=== PATIENT | male | born 1960 | race African-American/Black ===

== ENCOUNTER 2021-09-19 10:51 | Emergency (ER) | payer OTHER, SELFPAY ==
--- NOTE | ~2021-09-19 | CT_ITS ---
EXAMINATION: CT ABDOMEN AND PELVIS WITH CONTRAST CLINICAL INFORMATION: Upper abdominal pain. Vomiting. COMPARISON: None TECHNIQUE: Multidetector volumetric images were obtained from the superior aspect of the liver through the pubic symphysis following administration 85 mL of Omnipaque 350 intravenous contrast. Sagittal and coronal reformatted images were obtained on the technologist's workstation. Oral contrast: No This CT examination was performed using dose optimization techniques as appropriate, variously including the following: *Automated exposure control *Adjustment of mA and/or kV according to patient size (this includes techniques or standardized protocols for targeted exams where dose is matched to indication/reason for exam; i.e. extremities or head) *Use of iterative reconstruction technique DLP: 751 mGy-cm FINDINGS: LUNG BASES: Cystic changes noted at the right lung base. Bibasilar atelectasis. The visualized cardiac structures are unremarkable. LIVER, GALLBLADDER, AND BILIARY TREE: The liver is normal in size, shape, and attenuation. No focal hepatic lesion or biliary ductal dilatation is present. The gallbladder is unremarkable with no evidence of radiopaque gallstones, gallbladder wall thickening, or obvious pericholecystic inflammatory changes. PANCREAS: Unremarkable. SPLEEN: Normal size spleen. Small calcified granulomata are present. ADRENAL GLANDS: Unremarkable. KIDNEYS AND URETERS: The kidneys are normal in size, shape, and attenuation. No hydronephrosis, hydroureter, or calculi seen. No perinephric stranding. BLADDER: Unremarkable. GASTROINTESTINAL TRACT: The stomach is unremarkable. The small bowel is normal in caliber. There is wall thickening of the jejunum. Faint adjacent stranding of the fat. The ileum is unremarkable. No colonic wall thickening or acute inflammation. Minimal diverticulosis without diverticulitis. Normal appendix. No free air or free fluid. ABDOMINAL WALL: No significant hernia is appreciated. LYMPH NODES: Normal. VASCULAR: Normal caliber aorta with mild atherosclerotic calcifications. PELVIC VISCERA: The prostate and seminal vesicles are unremarkable. OSSEOUS STRUCTURES: No acute or suspicious osseous abnormality. Degenerative changes noted throughout the spine. Mild degenerative changes of the hips. CT/CT abdomen pelvis w con IMPRESSION: Wall thickening with adjacent inflammation involving the jejunum, suggestive of enteritis. Fleischner guidelines were followed.
[2021-09-19 11:07] VITALS: BP 151/105; BP 151/110; PULSE 70; RESP 19; TEMP 36.5; O2SAT 98; BMI 39.9
--- NOTE | 2021-09-19 11:22 | ECG_ITS ---
Test Reason : ABDOMINAL PAIN Blood Pressure : / mmHG Vent. Rate : 064 BPM Atrial Rate : 064 BPM P-R Int : 196 ms QRS Dur : 094 ms QT Int : 414 ms P-R-T Axes : 042 041 099 degrees QTc Int : 427 ms Normal sinus rhythm Cannot rule out Inferior infarct , age undetermined T wave abnormality, consider lateral ischemia Abnormal ECG No previous ECGs available Referred By: Cassie Senior Electronically Signed By:KATIE VALLEJO MD
--- NOTE | 2021-09-19 11:28 | ED.ABDPAIN ---
HPI - Abdominal Pain General Chief Complaint: Abdominal Pain Stated Complaint: HIGH BP Time Seen by Provider: 09/19/21 11:10 Source: patient and EMS Mode of arrival: EMS Limitations: no limitations History of Present Illness HPI narrative: 61-year-old male with a history of a high blood pressure, high cholesterol, congestive heart failure here with reports of abdominal pain which was diffuse and described as cramping with nausea and vomiting x1 and chills which occurred prior to arrival and is now resolved. Patient tells me that approximately 1 hour ago he felt the pain and it lasted approximately 15-20 minutes. He was seen at his job by the nurse working and was referred into the emergency department. Patient denies any associated chest pain, shortness of breath, headache, diarrhea, fevers. Patient now feels well and is eating a cheese and salami stick. Patient tells me his blood pressure was elevated for EMS 150/100. He did take his morning blood pressure medications Related Data Previous Rx's Medication Instructions Recorded ondansetron 4 mg disintegrating 4 mg PO Q6H PRN #10 tab 09/19/21 tablet Allergies Allergy/AdvReac Type Severity Reaction Status Date / Time lisinopril AdvReac Angioedema Verified 09/19/21 11:11 Review of Systems Review of Systems Yes all other systems are reviewed and are negative Constitutional: Reports no additional constitutional complaints, Denies body ache(s), Reports chills, Denies fever(s), Denies headache(s) and Denies weakness Eyes: Reports no additional eye complaints and Denies change in vision Reports system reviewed and no additional complaints, except as documented, Denies dizziness, Denies headache(s), Denies nasal congestion, Denies nasal discharge and Denies neck pain Cardiovascular: Reports no additional cardiovascular complaints, Denies chest pain, Denies leg edema and Denies dyspnea Respiratory: Reports no additional respiratory complaints, Denies cough and Denies dyspnea Gastrointestinal: Reports no additional gastrointestinal complaints, Reports abdominal pain, Denies diarrhea, Reports nausea and Reports vomiting Genitourinary: Denies urinary incontinence Musculoskeletal: Reports no additional musculoskeletal complaints, Denies back pain, Denies arthralgias, Denies joint swelling, Denies neck pain, Denies numbness and Denies tingling Skin/Breast: Reports system reviewed and no additional complaints, except as docu and Denies rash Reports system reviewed and no additional complaints, except as documented, Denies dizziness, Denies headache(s), Denies numbness, Denies tingling and Denies weakness PMFSH Past Medical History Attestation statement: The following information was validated with the patient. Source: old records reviewed and nursing notes reviewed Medical History (Updated 09/19/21 @ 13:33 by Cassie Senior NP) CHF (congestive heart failure) High cholesterol Hypertension Social History Social History (Updated 09/19/21 @ 11:30 by Cassie Senior NP) Alcohol intake: current Alcohol intake frequency: 3 or more drinks per day Alcohol type: wine and hard liquor Patient Tobacco Use Status: Current everyday Tobacco user Advance Directives: No Advance Directives Information Provided: No Physical Exam ED Vital Signs: Vital Signs - 24 hr 09/19/21 11:07 09/19/21 11:46 Temperature 97.7 F 97.5 F Pulse Rate 70 63 Respiratory Rate 19 17 Blood Pressure 151/105 H 142/86 H Pulse Oximetry 98 92 BMI result Body Mass Index 39.9 Const General: cooperative, healthy appearing, comfortable and no acute distress Orientation/consciousness: patient oriented x3 Limitations: no limitations HENMT Head: Yes normal to inspection Ears: hearing grossly normal bilaterally and TM's normal bilaterally General nose exam: Normal external nose present Face and sinus: Yes normal facial exam Mouth: Normal oral and palatal mucosa present Teeth and gingiva: dentition normal Throat: Yes posterior oropharynx normal, Yes tonsils normal and Yes uvula midline Eyes General: appearance normal, both eyes and all related structures Pupils: Equal, round and reactive pupils present Neck Neck: Yes normal visual inspection, Yes full ROM and Yes no lymphadenopathy Chest Chest palpation & inspection: normal inspection of the chest Resp Effort & Inspection: normal respiratory effort Auscultation: clear to auscultation bilaterally Cardio Rate: regular rate Rhythm: regular rhythm Peripheral pulses: Peripheral pulses 2+ throughout GI Inspection: Yes normal to inspection Palpation (GI): Soft to palpation and nontender Auscultation: normal bowel sounds General: Yes no CVA tenderness Back/Spine/Pelvis Back: no CVA tenderness Thoracic/Lumbar Spine: thoracic and lumbar spine normal to inspection Skin General skin exam: no rashes or lesions noted Neuro General: patient oriented x3 and moves all extremities Cranial nerves: Yes CN's II-XII intact bilaterally, Yes Equal, round and reactive pupils present, Yes Bilaterally intact EOM present, Yes Nystagmus not present and Yes Normal facial strength present Cognition (Neuro): normal cognition Gait exam (Neuro): Normal gait present Motor exam (neuro): 5/5 motor strength present throughout Sensory Exam: Normal double simultaneous stimulation for sensation Extrem General: Yes normal to inspection, Yes no pedal edema and Yes no calf tenderness Course Course Course Narrative: 61-year-old male here with reports of episode of abdominal cramping with vomiting x2 and chills which occurred prior to arrival and is now resolved. On exam the patient has no focal abdominal pain. His abdomen is soft nontender. He is feeling improved and is tolerating p.o.. Will check labs, UA, EKG, COVID screen -1215-EKG shows T-wave inversions in leads V4 through V6. No EKGs here at [facility] to compare to. I was able to copy the patient's EKG from his primary care doctor which was done on 05/22/2020. There is no change when compared to this EKG. 1220-labs unremarkable. COVID screen is negative. UA is pending. Which were examined the patient. He does report some upper abdominal pain now which he describes as a numb/pulsating feeling, on exam the patient does have some mild tenderness to the epigastric area with no rebound or guarding. Will check CT A/P. 1400-CT is consistent with enteritis or gastroenteritis. Patient had some mild nausea after receiving IV contrast which was improved with receiving a dose of Zofran. He was able to tolerate flakita nathaly and crackers with no additional vomiting episodes. Will discharge home with p.r.n. Zofran. Reviewed bland diet for the next several days and plenty of fluids. Reviewed worrisome signs and symptoms of when to return to the emergency department. Comfortable discharge home. MDM - Abdominal Pain MDM Narrative Medical decision making narrative: pancreatitis, gastroenteritis Medical Records Attestation: I reviewed the patient's medical records. Lab Data Attestation: I reviewed the patient's lab results. Result diagrams: 09/19/21 11:32 09/19/21 11:32 Labs: Lab Results 09/19/21 09/19/21 09/19/21 Range/Units 11:32 11:32 11:32 WBC 11.5 H (4.8-10.8) X10*3/uL RBC 5.73 (4.60-5.80) X10*6/uL Hgb 17.5 (14.0-18.0) g/dl Hct 54.7 H (42.0-52.0) % MCV 95.5 (80.0-98.0) fL MCH 30.5 (27.0-33.0) pg MCHC 32.0 (31.0-36.0) g/dl RDW 13.2 (11.0-16.0) % Plt Count 239 (160-400) X10*3/uL MPV 9.8 (9.4-12.4) fL Immature Gran % (Auto) 0.3 (0.0-0.4) % Neut % (Auto) 57.7 (45-73) % Lymph % (Auto) 27.7 (20-40) % [place] % (Auto) 10.4 (2-11) % Eos % (Auto) 3.7 (0-4) % Baso % (Auto) 0.2 (0-2) % Lymph # (Auto) 3.2 (1.2-4.9) X10*3/uL [place] # (Auto) 1.2 (0.1-1.2) X10*3/uL Eos # (Auto) 0.4 (0.0-0.4) X10*3/uL Baso # (Auto) 0.0 (0.0-0.2) X10*3/uL Abs Immat Gran (auto) 0.03 (0.00-0.03) X10*3/uL Absolute Neuts (auto) 6.6 (2.0-8.3) x10*3/uL Absolute Nucleated RBC 0.000 (0.0-0.012) X10*3/uL Nucleated RBC % (auto) 0.0 (0.0-0.2) /100WBC Sodium 141 (135-145) mmol/L Potassium 5.1 (3.3-5.1) mmol/L Chloride 103 (96-108) mmol/L Carbon Dioxide 31 H (22-29) mmol/L Anion Gap 12 (12-20) BUN 11 (9-16) mg/dL Creatinine 1.36 (0.5-1.4) mg/dL Estim Creat Clear Calc 70.1 Estimated GFR 53 Random Glucose 92 (60-115) mg/dL Lactic Acid 1.7 (0.5-2.0) mmol/L Calcium 9.8 (8.4-10.2) mg/dL Total Bilirubin 0.7 (0.0-1.0) mg/dL Direct Bilirubin 0.3 (0.0-0.5) mg/dL AST 22 (5-37) U/L ALT 28 (0-40) U/L Alkaline Phosphatase 156 H (39-117) U/L Total Protein 7.5 (6.5-8.0) g/dL Albumin 4.2 (3.5-5.0) g/dL Lipase 26 (8-78) U/L Urine Color Urine Appearance Urine pH (5.0-8.0) Ur Specific [place] (1.005-1.025) Urine Protein (NEG-TRACE) MG/DL Urine Glucose (UA) (NEG) MG/DL Urine Ketones (NEG) MG/DL Urine Blood (NEG) Urine Nitrite (NEG) Ur Leukocyte Esterase (NEG) COVID-19 ([facility]NA) (Negative) COVID-19 Clin Com 09/19/21 09/19/21 Range/Units 11:32 12:15 WBC (4.8-10.8) X10*3/uL RBC (4.60-5.80) X10*6/uL Hgb (14.0-18.0) g/dl Hct (42.0-52.0) % MCV (80.0-98.0) fL MCH (27.0-33.0) pg MCHC (31.0-36.0) g/dl RDW (11.0-16.0) % Plt Count (160-400) X10*3/uL MPV (9.4-12.4) fL Immature Gran % (Auto) (0.0-0.4) % Neut % (Auto) (45-73) % Lymph % (Auto) (20-40) % [place] % (Auto) (2-11) % Eos % (Auto) (0-4) % Baso % (Auto) (0-2) % Lymph # (Auto) (1.2-4.9) X10*3/uL [place] # (Auto) (0.1-1.2) X10*3/uL Eos # (Auto) (0.0-0.4) X10*3/uL Baso # (Auto) (0.0-0.2) X10*3/uL Abs Immat Gran (auto) (0.00-0.03) X10*3/uL Absolute Neuts (auto) (2.0-8.3) x10*3/uL Absolute Nucleated RBC (0.0-0.012) X10*3/uL Nucleated RBC % (auto) (0.0-0.2) /100WBC Sodium (135-145) mmol/L Potassium (3.3-5.1) mmol/L Chloride (96-108) mmol/L Carbon Dioxide (22-29) mmol/L Anion Gap (12-20) BUN (9-16) mg/dL Creatinine (0.5-1.4) mg/dL Estim Creat Clear Calc Estimated GFR Random Glucose (60-115) mg/dL Lactic Acid (0.5-2.0) mmol/L Calcium (8.4-10.2) mg/dL Total Bilirubin (0.0-1.0) mg/dL Direct Bilirubin (0.0-0.5) mg/dL AST (5-37) U/L ALT (0-40) U/L Alkaline Phosphatase (39-117) U/L Total Protein (6.5-8.0) g/dL Albumin (3.5-5.0) g/dL Lipase (8-78) U/L Urine Color YELLOW Urine Appearance HAZY Urine pH 5.5 (5.0-8.0) Ur Specific [place] >= 1.030 H (1.005-1.025) Urine Protein TRACE (NEG-TRACE) MG/DL Urine Glucose (UA) NEG (NEG) MG/DL Urine Ketones NEG (NEG) MG/DL Urine Blood NEG (NEG) Urine Nitrite NEG (NEG) Ur Leukocyte Esterase NEG (NEG) COVID-19 ([facility]LENA) Negative (Negative) COVID-19 Clin Com See Note Imaging Data CT scan - abdomen: Attestation: I personally reviewed and interpreted this imaging study as follows: Radiologist's impression: FINDINGS: LUNG BASES: Cystic changes noted at the right lung base. Bibasilar atelectasis. The visualized cardiac structures are unremarkable.? LIVER, GALLBLADDER, AND BILIARY TREE: The liver is normal in size, shape, and attenuation. No focal hepatic lesion or biliary ductal dilatation is present. The gallbladder is unremarkable with no evidence of radiopaque gallstones, gallbladder wall thickening, or obvious pericholecystic inflammatory changes.? PANCREAS: Unremarkable.? SPLEEN: Normal size spleen. Small calcified granulomata are present.? ADRENAL GLANDS: Unremarkable.? KIDNEYS AND URETERS: The kidneys are normal in size, shape, and attenuation. No hydronephrosis, hydroureter, or calculi seen. No perinephric stranding. ? BLADDER: Unremarkable.? GASTROINTESTINAL TRACT: The stomach is unremarkable. The small bowel is normal in caliber. There is wall thickening of the jejunum. Faint adjacent stranding of the fat. The ileum is unremarkable. No colonic wall thickening or acute inflammation. Minimal diverticulosis without diverticulitis. Normal appendix. No free air or free fluid.? ABDOMINAL WALL: No significant hernia is appreciated.? LYMPH NODES: Normal. VASCULAR: Normal caliber aorta with mild atherosclerotic calcifications. PELVIC VISCERA: The prostate and seminal vesicles are unremarkable.? OSSEOUS STRUCTURES: No acute or suspicious osseous abnormality. Degenerative changes noted throughout the spine. Mild degenerative changes of the hips.? CT/CT abdomen pelvis w con IMPRESSION: Wall thickening with adjacent inflammation involving the jejunum, suggestive of enteritis.? ? Fleischner guidelines were followed. ECG Data Attestation: I personally reviewed and interpreted this ECG as follows: ECG interpretation date: 09/19/21 ECG interpretation time: 11:39 Interpretation: Normal sinus rhythm with a rate of 64, normal ND, normal QRS, normal QT. Inverted T-waves in leads V4 through V6 Discharge Plan Discharge Clinical Impression: Gastroenteritis Patient Disposition: Home, Self-Care Instructions: Gastroenteritis (DC) Additional Instructions: Start with clear liquids and advance diet as tolerated Prescriptions: New ondansetron 4 mg tablet,disintegrating 4 mg PO Q6H PRN (Reason: nausea and vomiting) Qty: 10 0RF Referrals: Physician,Unknown J [Primary Care Provider] - 1 week (for persistent symptoms ) Stand Alone Forms: Work/School Release
[2021-09-19 11:38] LABS: Basophils Percent Auto 0.2 % (0-2); Eosinophils Absolute Auto 0.4 X10*3/uL (0.0-0.4); Eosinophils Percent Auto 3.7 % (0-4); Hematocrit 54.7 % (42.0-52.0); Hemoglobin 17.5 g/dl (14.0-18.0); Imm Gran Abs Auto 0.03 X10*3/uL (0.00-0.03); Imm Gran Pct Auto 0.3 % (0.0-0.4); Lymphocytes Absolute Auto 3.2 X10*3/uL (1.2-4.9); Lymphocytes Percent Auto 27.7 % (20-40); MANUAL DIFF FLAG NO; Mean Corpuscular Hemoglobin 30.5 pg (27.0-33.0); Mean Corpuscular Volume 95.5 fL (80.0-98.0); Mean Platelet Volume 9.8 fL (9.4-12.4); Monocytes Absolute Auto 1.2 X10*3/uL (0.1-1.2); Monocytes Percent Auto 10.4 % (2-11); Neutrophils Absolute Auto 6.6 x10*3/uL (2.0-8.3); Neutrophils Percent Auto 57.7 % (45-73); Platelet Count 239 X10*3/uL (160-400); Red Blood Count 5.73 X10*6/uL (4.60-5.80); Red Cell Distribution Width 13.2 % (11.0-16.0); White Blood Count 11.5 X10*3/uL (4.8-10.8)
[2021-09-19 11:46] VITALS: BP 142/86; PULSE 63; RESP 17; TEMP 36.4; O2SAT 92
[2021-09-19 11:48] LABS: Lactic Acid 1.7 mmol/L (0.5-2.0)
[2021-09-19 11:53] LABS: Alanine Aminotransferase 28 U/L (0-40); Albumin Level 4.2 g/dL (3.5-5.0); Alkaline Phosphatase 156 U/L (39-117); Anion Gap 12 (12-20); Aspartate Amino Transferase 22 U/L (5-37); Bilirubin Direct 0.3 mg/dL (0.0-0.5); Bilirubin Total 0.7 mg/dL (0.0-1.0); Blood Urea Nitrogen 11 mg/dL (9-16); Calcium 9.8 mg/dL (8.4-10.2); Carbon Dioxide 31 mmol/L (22-29); Chloride 103 mmol/L (96-108); Creatinine Clr Calc Pharmacy 70.1; Estimated Glomerular Filt Rate 53; Glucose Random 92 mg/dL (60-115); Lipase 26 U/L (8-78); Potassium 5.1 mmol/L (3.3-5.1); Sodium 141 mmol/L (135-145); Total Protein 7.5 g/dL (6.5-8.0)
[2021-09-19 12:04] LABS: COVID-19 Test Negative (Negative); IDNOW Serial# 55D5AD1C
[2021-09-19 12:48] LABS: Appearance Urine HAZY; Color Urine YELLOW; Glucose Urine UA NEG (NEG); Leukocyte Esterase Urine NEG (NEG); Nitrite Urine NEG (NEG); PH 5.5 (5.0-8.0); Specific Gravity - Urine >= 1.030 (1.005-1.025); Urine Blood NEG (NEG); Urine Ketones NEG (NEG); Urine Protein TRACE MG/DL (NEG-TRACE)
[2021-09-19] MEDS: iohexoL 350 MG/ML 100 ML INFUS..BTL IV (13:04)
[2021-09-19] MEDS: ondansetron HCL 4 MG/2 ML VIAL IVPUSH (13:38)
== END 2021-09-19 14:17 | disposition home or self-care (01) ==
PROVIDERS: Nurse Practitioner Family; Emergency Provider Emergency Medicine
DX: K52.9 Noninfective gastroenteritis and colitis, unspecified (principal); I11.0 Hypertensive heart disease with heart failure; I50.9 Heart failure, unspecified; Z20.822 Contact with and (suspected) exposure to COVID-19
CPT/HCPCS: 36415; 74177; 80048; 80076; 81003; 83605; 83690; 85025; 87635; 93005; 96374; 99284; J2405; Q9967